=== PATIENT | male | born 1980 | race Caucasian/White ===

== ENCOUNTER 2021-08-03 11:18 | Emergency (ER) | payer MEDICAID, SELFPAY ==
[2021-08-03 11:20] VITALS: BP 128/71; PULSE 69; RESP 18; TEMP 36.6; O2SAT 96; BMI 27.8
[2021-08-03 11:46] LABS: UTC Influenza A Antigen Negative (Negative); UTC Influenza B Antigen Negative (Negative)
--- NOTE | 2021-08-03 11:48 | HMH.EDUTC ---
[facility] [place] Disposition Clinical Impression: Acute bronchitis Qualifiers: Bronchitis organism: unspecified organism Qualified Code(s): J20.9 - Acute bronchitis, unspecified Disposition: Home, Self-Care Condition on Discharge: Good Instructions: DI for Acute Bronchitis Additional Instructions: Start antibiotic today. Be sure to complete entire prescription even if feeling better Tylenol and ibuprofen as needed for pain or fever Humidifier/vaporizer/hot steamy shower Follow-up with primary care tomorrow. Follow-up immediately in the ER of the [facility] for new or worsening symptoms or no noticeable improvement over the next 48-72 hours. Stop smoking Start steroids today. Helps with inflammation therefore coughing and wheezing. Follow directions on package. Prescriptions: predniSONE [Prednisone 20mg Tab] 20 mg PO BID #10 tab Transmission Status: Pending to [facility] Azithromycin [Zithromax 250mg tab] 250 mg PO DIRECTED #6 tab Transmission Status: Pending to [employer] Referrals: Provider,Referral, [Primary Care Provider] - Forms: Work/School Release Time of Disposition: 11:51 Medical Decision Making - Andrae Inquiry Pt receiving controlled substance: No Vital Signs: 08/03/21 11:20 Temperature 97.8 F Temperature Source Oral Pulse Rate [Right Brachial] 69 Respiratory Rate 18 Blood Pressure [Right Arm] 128/71 Blood Pressure Mean [Right Arm] 90 Blood Pressure Source [Right Arm] Automatic Cuff Blood Pressure Position [Right Arm] Sitting 02 Sat by Pulse Oximetry 96 Oxygen Delivery Method Room Air - Lab Data Lab Results 08/03/21 11:30: Influenza Type A Ag Negative, Influenza Type B Ag Negative [facility] [place] HPI - General Chief complaint: Urgent Treatment Center Stated complaint: possible flu, sore throat, congestion Time Seen by Provider: 08/03/21 11:48 Mode of Arrival: Ambulatory Source of Information: Patient Limitations: No Limitations Description of Symptoms (Recalled from Triage Doc. by RN): PATIENT C/O CONGESTION, BODY ACHES, CHEST TIGHTNESS, AND LOWER BACK PAIN SINCE THURSDAY HEENT Symptoms (Recalled from RN notes): Yes Resp Symptoms (Recalled from RN notes): No Skin Symptoms (Recalled from RN notes): No MS Symptoms (Recalled from RN notes): Yes Functional Status (Recalled from RN notes): WNL - History of Present Illness Provider Complaint: 40 yr old male presents for body aches, chest congestion, coughing up thick yellow soutum, low back pain and nasal congestion since weds - Related Data Home Medications Medication Instructions Recorded Confirmed Buprenorphine HCl/Naloxone HCl 2 each SL DAILY 08/03/21 08/03/21 [Buprenorphin-Naloxon 8-2 mg Sl] Previous Rx's Medication Instructions Recorded Azithromycin [Zithromax 250mg 250 mg PO DIRECTED #6 tab 08/03/21 tab] predniSONE [Prednisone 20mg 20 mg PO BID #10 tab 08/03/21 Tab] Allergies Allergy/AdvReac Type Severity Reaction Status Date / Time No Known Allergies Allergy Verified 08/03/21 11:36 - Worker's Comp Is this a Worker's Comp case?: No [facility] History - Hepatitis A Screen Drug use history?: No High risk sexual behaviors?: No History of sexually transmitted infection?: No Currently employed?: No Childcare worker?: No Do you have indoor plumbing?: Yes Do you have electricity?: Yes Attestation statement:: This patient has been screened for Hepatitis A risk factors. I have reviewed the patient's past medical history: Yes ROS Obtained: Yes Systems reviewed as appropriate & no additional complaints - Constitutional Constitutional: Reports system reviewed and no additional complaints, except as docu, Reports body ache, Denies fever(s) - Eyes Eyes: Reports system reviewed and no additional complaints, except as docu, Denies dry eyes - ENT Ears, Nose, Mouth, and Throat: Reports system reviewed and no additional complaints, except as docu, Reports sore throat - Car
[2021-08-03 11:50] VITALS: BP 128/71; PULSE 69; RESP 18; TEMP 36.6; O2SAT 96
== END 2021-08-03 11:58 | disposition home or self-care (01) ==
PROVIDERS: Emergency Provider Nurse Practitioner Family
DX: J20.9 Acute bronchitis, unspecified (principal); R07.89 Other chest pain; M79.10 Myalgia, unspecified site; M54.50 Low back pain, unspecified; Z79.52 Long term (current) use of systemic steroids
CPT/HCPCS: 87804; 99213; G0463

== ENCOUNTER 2021-11-15 15:42 | Emergency (ER) | payer MEDICAID, SELFPAY ==
--- NOTE | 2021-11-15 15:53 | HMH.EDUTC ---
[facility] [place] Disposition Clinical Impression: STD exposure Disposition: Home, Self-Care Condition on Discharge: Good Instructions: Chlamydia Additional Instructions: Drink plenty of fluids. Take tylenol or ibuprofen for pain or fever. Take the medications as directed. Follow up with your regular doctor. GO TO THE ER FOR ANY WORSENING SYMPTOMS Prescriptions: Doxycycline Monohydrate [Doxycycline Harrison 100mg Tab] 100 mg PO Q12 10 Days #20 tab Transmission Status: Received by [facility] Referrals: Altagracia Whaley [Primary Care Provider] - Time of Disposition: 16:23 Medical Decision Making - Medical Records Medical records reviewed: No: I reviewed the patient's medical records. - Andrae Inquiry Pt receiving controlled substance: No Vital Signs: 11/15/21 15:57 11/15/21 16:35 Temperature 98.1 F 98.1 F Temperature Source Oral Pulse Rate 127 H Pulse Rate [Left] 127 H Respiratory Rate 18 18 Blood Pressure 148/99 H Blood Pressure [Right Arm] 148/99 H Blood Pressure Mean [Right Arm] 115 02 Sat by Pulse Oximetry 96 [facility] [place] HPI - General Stated complaint: need meds Time Seen by Provider: 11/15/21 15:53 - History of Present Illness Provider Complaint: He states that the has been exposed to chlaymidia last week and he is now having redness or his urinary meatus and dysuria. He request to the be treated for this. He refuses a test. - Related Data Home Medications Medication Instructions Recorded Confirmed Buprenorphine HCl/Naloxone HCl 2 each SL DAILY 08/03/21 08/03/21 [Buprenorphin-Naloxon 8-2 mg Sl] Previous Rx's Medication Instructions Recorded Azithromycin [Zithromax 250mg 250 mg PO DIRECTED #6 tab 08/03/21 tab] predniSONE [Prednisone 20mg 20 mg PO BID #10 tab 08/03/21 Tab] Doxycycline Monohydrate 100 mg PO Q12 10 Days #20 tab 11/15/21 [Doxycycline Harrison 100mg Tab] Allergies Allergy/AdvReac Type Severity Reaction Status Date / Time No Known Allergies Allergy Verified 11/15/21 16:02 [facility] History - Hepatitis A Screen Attestation statement:: This patient has been screened for Hepatitis A risk factors. I have reviewed the patient's past medical history: Yes ROS Obtained: Yes All systems reviewed & no additional complaints - Constitutional Constitutional: Denies chills, Denies fever(s) - Genitourinary Male Genitourinary: Reports as per HPI - Musculoskeletal Musculoskeletal: Denies back pain - Integumentary/Breasts Skin/Breast: Denies rash Physical Exam - General General appearance: alert, in no apparent distress - Head Head exam: atraumatic, normocephalic, normal inspection - Eye Eye exam: Present: normal appearance, PERRL, EOMI - ENT ENT exam: Present: normal exam, normal oropharynx, mucous membranes moist, TM's normal bilaterally, normal external ear exam - Neck Neck exam: Present: normal inspection, full ROM, trachea midline. Absent: meningismus, lymphadenopathy - Chest Chest inspection: Present: normal inspection, symmetric chest wall rise. Absent: tenderness - Respiratory Respiratory exam: Present: normal lung sounds bilaterally. Absent: respiratory distress - Cardiovascular Cardiovascular exam: Present: regular rate, normal rhythm. Absent: JVD - Abdominal Exam Abdominal exam: Present: soft, normal bowel sounds. Absent: distention, tenderness, guarding - Extremities Exam Extremities exam: Present: normal inspection, full ROM, normal capillary refill. Absent: calf tenderness - Back Exam Back exam: Present: normal inspection. Absent: tenderness - Neurological Exam Neurological exam: Present: alert, oriented X3 - Psychiatric Psychiatric exam: Present: normal affect, normal mood - Skin Skin exam: Present: warm, dry, intact, normal color - Lymphatic Lymphatic Findings: no adenopathy
[2021-11-15 15:57] VITALS: BP 148/99; PULSE 127; RESP 18; TEMP 36.7; O2SAT 96; BMI 27.8
[2021-11-15 16:35] VITALS: BP 148/99; PULSE 127; RESP 18; TEMP 36.7
== END 2021-11-15 16:36 | disposition home or self-care (01) ==
LOC: UTC 15:46
PROVIDERS: Emergency Provider Nurse Practitioner Family; PCP Nurse Practitioner Family
DX: Z20.2 Contact with and (suspected) exposure to infections with a predominantly sexual mode of transmission (principal)
CPT/HCPCS: 99212; G0463

== ENCOUNTER 2022-06-24 10:38 | Emergency (ER) | payer MEDICAID, SELFPAY ==
[2022-06-24 10:50] VITALS: BP 112/82; PULSE 92; RESP 20; TEMP 36.8; O2SAT 99; BMI 27.8
--- NOTE | 2022-06-24 10:58 | EXP.UTC ---
Discharge Plan Disposition Patient Disposition: Home, Self-Care Condition: Good Prescriptions Prescriptions: New azithromycin [Zithromax] 250 mg tablet 250 mg PO UD DOSE PK Qty: 6 0RF Rx Instructions: Take two (2) tablets today, then one (1) tablet days #2 thru #5 benzonatate [benzonatate] 100 mg capsule 100 mg PO TIDP PRN (Reason: Cough) Qty: 30 0RF methylprednisolone 4 mg Tablets,Dose Pack 4 mg PO DIRECTED Qty: 21 0RF No Action buprenorphine-naloxone 1 EACH tablet, sublingual 2 each SL DAILY propranolol 10 mg tablet 10 mg PO DAILY lisinopril 10 mg tablet 10 mg PO DAILY Referrals Follow up/Referrals: Provider,Referral, MD [Primary Care Provider] - See instructions Activity Restrictions/Add. Instructions Additional Instructions/Restrictions: Drink plenty of fluids. Take tylenol or ibuprofen for pain or fever. Take the medications as directed. Follow up with your regular doctor. GO TO THE ER FOR ANY WORSENING SYMPTOMS Clinical Impressions Clinical Impression: Acute bronchitis, Sinusitis Stand Alone Forms Stand Alone Forms: Work/School Release Instructions Patient Instructions: Sinusitis, DI for Sinusitis Discharge ED Provider: Manny Cat [facility] [place] HPI General Stated complaint: Weakness, chest congestion, drainage, headache Time Seen by Provider: 06/24/22 10:43 History of Present Illness Provider Complaint: He states that for the past 2 days he has had cough, sore throat and congestion. Related Data Home Medications Medication Instructions Recorded Confirmed buprenorphine 8 mg-naloxone 2 mg 2 each SL DAILY . 08/03/21 06/24/22 sublingual tablet lisinopril 10 mg tablet 10 mg PO DAILY . 06/24/22 06/24/22 propranolol 10 mg tablet 10 mg PO DAILY . 06/24/22 06/24/22 Previous Rx's Medication Instructions Recorded azithromycin 250 mg tablet 250 mg PO UD DOSE PK #6 tabs 06/24/22 (Zithromax) benzonatate 100 mg capsule 100 mg PO TIDP PRN Cough #30 caps 06/24/22 methylprednisolone 4 mg tablets in 4 mg PO DIRECTED #21 tabs 06/24/22 a dose pack Allergies Allergy/AdvReac Type Severity Reaction Status Date / Time No Known Allergies Allergy Verified 06/24/22 11:13 [facility] Disclaimer: The information contained in this section may have been updated after the patient was seen, as this information can be updated by other users. Social History Smoking Status: Never smoker alcohol intake: never current occupational status: employed Travel in the last 8 weeks: None ROS Obtained: Yes All systems reviewed & no additional complaints except as documented Constitutional Constitutional: Reports poor appetite Eyes Eyes: Reports system reviewed and no additional complaints, except as documented ENT Ears, Nose, Mouth, and Throat: Reports as per HPI Cardiovascular Cardiovascular: Reports system reviewed and no additional complaints, except as documented and Denies chest pain Respiratory Respiratory: Denies shortness of breath, Reports chest congestion, Reports cough, Denies stridor and Denies wheezing Gastrointestinal Gastrointestingal: Reports system reviewed and no additional complaints, except as documented; Denies abdominal pain, diarrhea or vomiting Musculoskeletal Musculoskeletal: Reports system reviewed and no additional complaints, except as documented and Denies arthralgias Integumentary/Breasts Skin/Breast: Reports system reviewed and no additional complaints, except as documented and Denies rash Neurologic Neurologic: Denies paresthesias Allergic/Immunologic Allergic/Immunologic: Denies wheezing Physical Exam General General appearance: alert and in no apparent distress Head Head exam: atraumatic, normocephalic and normal inspection Eye Eye exam: Present normal appearance, PERRL and EOMI ENT ENT exam: Present normal exam, normal oropharynx, mucous membranes m
[2022-06-24 11:19] LABS: UTC Influenza A Antigen Negative (Negative); UTC Strep Screen (Rapid) Negative (Negative)
[2022-06-24 11:20] LABS: UTC Influenza B Antigen Negative (Negative)
[2022-06-24 12:01] VITALS: BP 112/82; PULSE 92; RESP 20; TEMP 36.8; O2SAT 99
== END 2022-06-24 12:00 | disposition home or self-care (01) ==
PROVIDERS: Emergency Provider Nurse Practitioner Family
DX: J20.9 Acute bronchitis, unspecified (principal); J32.9 Chronic sinusitis, unspecified
CPT/HCPCS: 87804; 87880; 99212; 99214; C9803; G0463; U0003; U0005

== ENCOUNTER 2022-07-17 08:55 | Emergency (ER) | payer MEDICAID, SELFPAY ==
[2022-07-17 09:00] VITALS: BP 128/67; PULSE 76; RESP 18; TEMP 36.8; O2SAT 100; BMI 27.1
--- NOTE | 2022-07-17 09:16 | HMH.EDGENADL ---
Discharge Plan Disposition Patient Disposition: Home, Self-Care Prescriptions Prescriptions: No Action buprenorphine-naloxone 1 EACH tablet, sublingual 2 each SL DAILY propranolol 10 mg tablet 10 mg PO DAILY lisinopril 10 mg tablet 10 mg PO DAILY Referrals Follow up/Referrals: Provider,Referral, [Primary Care Provider] - See instructions Activity Restrictions/Add. Instructions Additional Instructions/Restrictions: Please have your jerrica removed in 10 days return to the emergency department any worsening concerns. Clinical Impressions Clinical Impression: Laceration of scalp Instructions Patient Instructions: DI for Laceration Repair Discharge ED Provider: Charito Carrasco General Adult HPI General Chief complaint: Wound/Laceration Stated complaint: ao 07/16/22 Rail from barn hit head Time Seen by Provider: 07/17/22 09:19 Mode of Arrival: Ambulatory Source of Information: Patient Limitations: No Limitations Description of Symptoms (Recalled from ER Triage Doc. by RN): Pt reports approx 7:30 pm lastnight a tier rail fell out of a barn and hit him in the head. Pt reports he fell forward onto his face after getting hit in the head. Possible LOC. Pt reports woke up this morning with bad headache . No active bleeding noted. Laceration x2 on top of head on R side. History of Present Illness HPI narrative: Patient is a 41-year-old male was working yesterday evening in a barn carrying it down when a rail fell and hit him in the head and sustaining lacerations to the posterior right aspect of his right occipital region. States he did not have loss of consciousness has had normal level of alertness since that time no neurologic symptoms no persistent vomiting he came back into the emergency department today because it kept bleeding. Pain is is mild tetanus is not up-to-date. Related Data Home Medications Medication Instructions Recorded Confirmed buprenorphine 8 mg-naloxone 2 mg 2 each SL DAILY . 08/03/21 06/24/22 sublingual tablet lisinopril 10 mg tablet 10 mg PO DAILY . 06/24/22 06/24/22 propranolol 10 mg tablet 10 mg PO DAILY . 06/24/22 06/24/22 Allergies Allergy/AdvReac Type Severity Reaction Status Date / Time No Known Allergies Allergy Verified 06/24/22 11:13 [facility] Disclaimer: The information contained in this section may have been updated after the patient was seen, as this information can be updated by other users. Social History (Updated 06/24/22 @ 21:47 by Manny Cat APRN) Smoking Status: Current every day smoker alcohol intake: never current occupational status: employed Travel in the last 8 weeks: None ROS Obtained: Yes All systems reviewed & no additional complaints except as documented Physical Exam General General appearance: alert and in no apparent distress Head Head exam: other (No depressed skull fractures no raccoon sign or bustillo sign there are 2 vertically oriented lacerations in the posterior occipital region on the right side one is 4 cm the other is 2 cm both gaping about half centimeter) Neck Neck exam: Absent tenderness Respiratory Respiratory exam: Present normal lung sounds bilaterally; Absent respiratory distress Cardiovascular Cardiovascular exam: Present regular rate; Absent tachycardia Neurological Exam Neurological exam: Present alert, oriented X3, CN II-XII intact and normal gait; Absent motor sensory deficit Medical Decision Making Andrae Inquiry Pt receiving controlled substance: No Vital Signs: 07/17/22 09:00 Temperature 98.2 F Temperature Source Oral Pulse Rate [Right Radial] 76 Respiratory Rate 18 Blood Pressure [Right Arm] 128/67 Blood Pressure Mean [Right Arm] 87 Blood Pressure Source [Right Arm] Automatic Cuff Blood Pressure Position [Right Arm] Sitting 02 Sat by Pulse Oximetry 100 Oxygen Delivery Method Room Air Orders (Tests/Meds): ED MEDICATIONS Generic Name Dose Route Start Last Admin
[2022-07-17 09:27] VITALS: BP 128/67; PULSE 76; RESP 18; TEMP 36.8; O2SAT 100
== END 2022-07-17 09:27 | disposition home or self-care (01) ==
PROVIDERS: Emergency Provider Student in an Organized Health Care Education/Training Program
DX: S01.01XA Laceration without foreign body of scalp, initial encounter (principal); W20.8XXA Other cause of strike by thrown, projected or falling object, initial encounter
CPT/HCPCS: 12002; 90471; 90715; 96372; 99283

== ENCOUNTER 2022-07-27 10:41 | Emergency (ER) | payer MEDICAID, SELFPAY ==
[2022-07-27 10:50] VITALS: BP 138/90; PULSE 92; RESP 20; TEMP 37; O2SAT 97; BMI 27.1
--- NOTE | 2022-07-27 10:56 | EXP.UTC ---
Discharge Plan Disposition Patient Disposition: Home, Self-Care Condition: Good Prescriptions Prescriptions: New sulfamethoxazole-trimethoprim [Bactrim DS] 800-160 mg Tablet 1 tab PO BID Qty: 20 0RF cephalexin 500 mg capsule 500 mg PO QID Qty: 40 0RF mupirocin 2 % ointment 1 applic topical TID 7 Days Qty: 22 0RF No Action buprenorphine-naloxone 1 EACH tablet, sublingual 2 each SL DAILY propranolol 10 mg tablet 10 mg PO DAILY lisinopril 10 mg tablet 10 mg PO DAILY Referrals Follow up/Referrals: Provider,Referral, MD [Primary Care Provider] - See instructions Activity Restrictions/Add. Instructions Additional Instructions/Restrictions: Keep the wounds clean and dry. Follow up with your regular doctor. You should follow up with with your regular doctor or here in 48 hours for a wound recheck to make sure this is getting better instead of worse. Take the antibiotics as directed and apply the topical antibiotics as directed. Watch the wounds for signs of worsening infection, such as worsening redness, drainage, swelling, etc. GO TO THE ER FOR ANY WORSENING SYMPTOMS Clinical Impressions Clinical Impression: Cutaneous abscess of left upper extremity, Cutaneous abscess of right upper extremity, Encounter for removal of jerrica, Cellulitis of arm, left Stand Alone Forms Stand Alone Forms: Work/School Release Instructions Patient Instructions: DI for Cellulitis -- Adult, Cellulitis, DI for Suture Removal, DI for Skin Abscess Discharge ED Provider: Manny Cat [facility] General Stated complaint: AO3/15, suture removal, lac on both arms Time Seen by Provider: 07/27/22 10:56 History of Present Illness Provider Complaint: He is here for removal of jerrica in his scalp from a laceration that he recieved last week. He states that wound is well healed and has did fine. But he has a red area on his right forearm and left forearm. HE thinks that he was bitten by a spider. He denies any fever. Related Data Home Medications Medication Instructions Recorded Confirmed buprenorphine 8 mg-naloxone 2 mg 2 each SL DAILY . 08/03/21 06/24/22 sublingual tablet lisinopril 10 mg tablet 10 mg PO DAILY . 06/24/22 06/24/22 propranolol 10 mg tablet 10 mg PO DAILY . 06/24/22 06/24/22 Previous Rx's Medication Instructions Recorded cephalexin 500 mg capsule 500 mg PO QID #40 caps 07/27/22 mupirocin 2 % topical ointment 1 applic topical TID 7 days #22 07/27/22 grams sulfamethoxazole 800 1 tab PO BID #20 tabs 07/27/22 mg-trimethoprim 160 mg tablet (Bactrim DS) Allergies Allergy/AdvReac Type Severity Reaction Status Date / Time No Known Allergies Allergy Verified 06/24/22 11:13 [facility] Disclaimer: The information contained in this section may have been updated after the patient was seen, as this information can be updated by other users. Social History (Updated 06/24/22 @ 21:47 by Manny Cat APRN) Smoking Status: Current every day smoker alcohol intake: never current occupational status: employed Travel in the last 8 weeks: None ROS Obtained: Yes All systems reviewed & no additional complaints except as documented Constitutional Constitutional: Denies chills and Denies fever(s) Eyes Eyes: Denies eye discharge ENT Ears, Nose, Mouth, and Throat: Denies dizziness, Denies otalgia and Denies sore throat Cardiovascular Cardiovascular: Denies chest pain Respiratory Respiratory: Denies shortness of breath, Denies chest congestion, Denies cough, Denies stridor and Denies wheezing Gastrointestinal Gastrointestingal: Denies nausea or vomiting Musculoskeletal Musculoskeletal: Reports system reviewed and no additional complaints, except as documented and Denies arthralgias Integumentary/Breasts Skin/Breast: Reports as per HPI Neurologic Neurologic: Denies dizziness and Denies paresthesias Allergic/Immunologic Allergic/Immunologic: Denies wheezing
[2022-07-27 11:46] VITALS: BP 138/90; PULSE 92; RESP 20; TEMP 37; O2SAT 97
== END 2022-07-27 12:00 | disposition home or self-care (01) ==
PROVIDERS: Emergency Provider Nurse Practitioner Family
DX: L02.414 Cutaneous abscess of left upper limb (principal); L02.413 Cutaneous abscess of right upper limb; L03.114 Cellulitis of left upper limb; B95.7 Other staphylococcus as the cause of diseases classified elsewhere; S01.01XD Laceration without foreign body of scalp, subsequent encounter; Z48.02 Encounter for removal of sutures
CPT/HCPCS: 96372; 87070; 87077; 87186; 87205; 99212; 99214; G0463; J0696